=== PATIENT | male | born 1970 | race Hispanic/Latino ===

== ENCOUNTER → 2016-12-23 | Outpatient (CLI) | payer OTHER ==
[2016-12-23 09:20] LABS: ANION GAP 7 MEQ/L (8-16); BLOOD UREA NITROGEN 16 MG/DL (7-18); CALCIUM LEVEL 8.5 MG/DL (8.5-10.1); CARBON DIOXIDE LEVEL 27 MEQ/L (21-32); CHLORIDE LEVEL 102 MEQ/L (98-107); CHOLESTEROL LEVEL 209 MG/DL (<200); CREATININE FOR GFR 0.74 MG/DL (0.70-1.30); GLOMERULAR FILTRATION RATE > 60.0 (>60); GLUCOSE, FASTING 144 MG/DL (70-105); POTASSIUM SERUM 3.7 MEQ/L (3.5-5.1); SODIUM LEVEL 136 MEQ/L (136-145); TRIGLYCERIDES LEVEL 738 MG/DL (<150)
[2016-12-28 00:06] LABS: IA-2 AUTOANTIBODIES < 1.00 U/mL (.)
== END ==
LOC: M LAB 08:14
PROVIDERS: ATTEND Nurse Practitioner Family
DX: E11.65 Type 2 diabetes mellitus with hyperglycemia (principal)

== ENCOUNTER → 2017-06-24 | Outpatient (CLI) | payer OTHER ==
[2017-06-24 09:19] LABS: ANION GAP 4 MEQ/L (8-16); BLOOD UREA NITROGEN 18 MG/DL (7-18); CALCIUM LEVEL 8.6 MG/DL (8.5-10.1); CARBON DIOXIDE LEVEL 27 MEQ/L (21-32); CHLORIDE LEVEL 109 MEQ/L (98-107); CHOLESTEROL LEVEL 139 MG/DL (<200); CHOLESTEROL RISK RATIO 3.971 (<5); CREATININE FOR GFR 0.88 MG/DL (0.70-1.30); GLOMERULAR FILTRATION RATE > 60.0 (>60); GLUCOSE, FASTING 153 MG/DL (70-100); HDL CHOLESTEROL 35 MG/DL (>40); LDL CHOLESTEROL 50.4 MG/DL (<100); NON-HDL-C 104 MG/DL; POTASSIUM SERUM 3.8 MEQ/L (3.5-5.1); SODIUM LEVEL 140 MEQ/L (136-145); TRIGLYCERIDES LEVEL 268 MG/DL (<150)
[2017-06-24 09:22] LABS: CREATININE, URINE 81.3 MG/DL; MALB URINE SIEMENS 10.8 MG/L; MAU/CREAT RATIO 13.2 MCG/MG (0.0-30.0)
== END ==
LOC: M LAB 07:46
DX: E11.65 Type 2 diabetes mellitus with hyperglycemia (principal); E78.00 Pure hypercholesterolemia, unspecified
CPT/HCPCS: 80061

== ENCOUNTER → 2018-05-25 | Outpatient (REF) | payer OTHER | LOC: M SFHCLERA 14:03 | PROVIDERS: ATTEND Physician Assistant | DX: J02.9 Acute pharyngitis, unspecified (principal) ==

== ENCOUNTER → 2020-03-11 | Outpatient (CLI) | payer SELFPAY | LOC: M LABSMTC 11:14 | PROVIDERS: ATTEND Pediatrics | DX: Z20.828 Contact with and (suspected) exposure to other viral communicable diseases (principal) ==

== ENCOUNTER → 2021-10-26 | Outpatient (CLI) | payer OTHER, SELFPAY ==
[~2021-10-26] MED LIST: ADDE20CA3 PO; ATOMOXETINE PO; ATOR80TA59 PO; BYDU2INJ7 SC; GLYB5TAB6 PO; INVO100T PO; LANTINJ4 SC; METF-838 PO; TRIC145T22 PO
== END ==
LOC: M LABSMTC 09:14
PROVIDERS: ATTEND Anesthesiology
DX: Z01.812 Encounter for preprocedural laboratory examination (principal); Z20.822 Contact with and (suspected) exposure to COVID-19

== ENCOUNTER 2021-10-29 07:22 | Day surgery (SDC) | payer OTHER ==
[~2021-10-29] VITALS: Ht 193 cm; Wt 106.1 kg
[~2021-10-29 07:22] MED LIST changes: +NS 1,000 ML IV ONE
[2021-10-29] MEDS ORDERED: propofoL 200 MG/20 ML VIAL As Ordered ONE ×3 (08:53→09:06)
[2021-10-29] MEDS ORDERED: LIDOCAINE 2% 100MG/5ML SDV (FOR ANES.) As Ordered ONE (08:57)
[2021-10-29 09:30] VITALS: BP 126/75
== END 2021-10-29 09:42 | disposition home or self-care (01) ==
LOC: M OPP 07:22
PROVIDERS: ATTEND Internal Medicine Gastroenterology
DX: Z12.11 Encounter for screening for malignant neoplasm of colon (principal); K64.0 First degree hemorrhoids; E78.5 Hyperlipidemia, unspecified; E11.9 Type 2 diabetes mellitus without complications; G47.30 Sleep apnea, unspecified; Z79.4 Long term (current) use of insulin; Z79.899 Other long term (current) drug therapy